=== PATIENT | male | born 1955 | race Caucasian/White ===

== ENCOUNTER → 2023-09-07 13:43 | Outpatient (REF) | payer MEDICARE, OTHER, SELFPAY | LOC: RCS 13:43 | PROVIDERS: ATTENDING PHYSICIAN Family Medicine | DX: R07.89 Other chest pain (principal) | CPT/HCPCS: 93017; 93350 ==

== ENCOUNTER 2024-01-30 08:06 | Day surgery (SDC) | payer MEDICARE, OTHER, SELFPAY ==
[2024-01-30] VITALS (12 sets, daily range): BP systolic 135–165; BP diastolic 73–92; BMI 30.7
[2024-01-30 08:46] LABS: Glucose - Point of Care 108 mg/dl (70-99)
[2024-01-30] MEDS: LOW STRENGTH ASPIRIN 81 MG PO (08:48)
[2024-01-30] MEDS: NSS 316 ML IV (08:48)
[2024-01-30 09:44] LABS: ACT-LR - POC 227 Seconds (116-155)
--- NOTE | 2024-01-30 10:11 | ITS.CL.CATH ---
[employer] - Catheterization
Cardiac Catheterization
Procedure Report:
CARDIAC CATHETERIZATION REPORT
Date of Procedure: 01/30/2024
Referring: Van Mascorro DO
Indication: Angina with abnormal stress test
HEMODYNAMIC DATA
AO: 150/76
LV: 150/18
LEFT VENTRICULOGRAPHY: Normal left ventricular wall motion with EF 58%
CORONARY ANGIOGRAPHY
Dominance: Right
Left Main: Normal
LAD: 90% proximal LAD stenosis spanning the takeoff of the first septal diversity intern and small to medium sized first diagonal branch. There is a 30% mid to distal LAD stenosis the remainder of the LAD has trivial luminal disease
Circumflex: Normal
RCA: 30% proximal RCA stenosis. There is 30-40% stenosis of the distal RCA proximal takeoff of a very large PDA and a medium sized posterolateral system
Angioplasty: At the conclusion the diagnostic study, we proceeded with LAD intervention. Heparin was used for anticoagulation. Plavix 600 mg was administered the procedure conclusion. A 6 [place]ian EBU 3.75 guide catheter was used. A BMW was passed
into the distal LAD. Direct stenting with a 3.25 by 18 Xience BRYON deployed at 15 martín was accomplished. Angiography following stent deployment showed patency of the septal diversity intern but occlusion of the small to medium sized D1 originating from
within the diseased segment of LAD. We then postdilated the stent with a 3.5 x 15 NC trek to 17 martín. Angiography then demonstrated the first diagonal branch to be widely patent. There was 50% stenosis proximal to the stent edge due to the length
of the original lesion and we overlapped a 3.5 x 8 Xience to extend the stented segment. The angiographic result was outstanding.
Closure Device: None-procedure was performed via the right radial artery. The Janes's test was normal prior to the procedure.
Radiation (mGy): 699
DAP (cm2.Gy): 55.1
Fluoroscopy time: 5.6 minutes
CONCLUSIONS
1: Systemic hypertension
2: Normal left-ventricular function with EF 58%
3. Severe single-vessel CAD with 90% proximal LAD stenosis.
4. Successful treatment of proximal LAD disease using overlapping 3.25 x 18 and 3.5 x 8 Xience drug-eluting stents. Postdilatation was accomplished with a 3.5 mm noncompliant balloon
5. Recommend dual antiplatelet therapy for 12 months and continued aggressive risk factor modification efforts
Copy to: Van Mascorro DO, Kendrick Vazquez DO
Andrew Ny MD, [facility], [facility]
[2024-01-30 11:19] LABS: ACT-LR - POC > 397 Seconds (116-155)
[2024-01-30 11:36] LABS: Glucose - Point of Care 110 mg/dl (70-99)
--- NOTE | 2024-01-30 14:13 | W.PN.UPDATE ---
Update Note
Progress Note Update
68 yo WM s/p PCI LADx2 BRYON (Same day). He denies cp, sob, corey diet, voiding, amb w/o dizziness, Rad site c/d/i, EKG bifascicular block no ST changes. He will be on DAPT ASA/Plavix. He will start atrovastatin 40mg. He will hold Metformin 48 hrs post
cath. Cardiac rehab c/s. He will f/u Dr. Mascorro in 2-4 weeks. He is for d/c home after 3pm.
CONCLUSIONS
1: Systemic hypertension
2: Normal left-ventricular function with EF 58%
3. Severe single-vessel CAD with 90% proximal LAD stenosis.
4. Successful treatment of proximal LAD disease using overlapping 3.25 x 18 and 3.5 x 8 Xience drug-eluting stents. Postdilatation was accomplished with a 3.5 mm noncompliant balloon
5. Recommend dual antiplatelet therapy for 12 months and continued aggressive risk factor modification efforts
Copy to: Van Mascorro DO, Kendrick Vazquez DO
== END 2024-01-30 15:05 | disposition home or self-care (01) ==
LOC: CATH 08:06
PROVIDERS: ATTENDING PHYSICIAN Internal Medicine Cardiovascular Disease; FAMILY PHYSICIAN Family Medicine; OTHER PHYSICIAN Internal Medicine Cardiovascular Disease
DX: I25.119 Atherosclerotic heart disease of native coronary artery with unspecified angina pectoris (principal); R94.39 Abnormal result of other cardiovascular function study; I10 Essential (primary) hypertension; Z91.199 Patient's noncompliance with other medical treatment and regimen due to unspecified reason; Z79.02 Long term (current) use of antithrombotics/antiplatelets; Z79.82 Long term (current) use of aspirin
CPT/HCPCS: 82962; 85347; 93005; 93458; C1725; C1769; C1874; C1894; C9600; Q9967